=== PATIENT | female | born 1945 | race Caucasian/White ===

== ENCOUNTER 2016-09-13 09:55 | Outpatient (RCR) | payer MEDICARE, BC ==
[2016-07-03 08:43] VITALS: BP 167/79
[~2016-09-13 09:55] MED LIST: ALLERGY10 MG PO; ASPIRIN ADULT L81 M3 PO; ASTELIN NASAL S34 ML NS; CALCIUM 600600 M2 PO; FAMOTIDINE10 MG PO; LISINOPRIL2.5 MG PO; METFORMIN500 MG PO; MVI PO
== END 2016-12-12 | disposition home or self-care (01) ==
LOC: PT
DX: Z47.89 Encounter for other orthopedic aftercare (principal)

== ENCOUNTER → 2017-09-29 | Outpatient (CLI) | payer MEDICARE, BC ==
[2016-07-03 08:43] VITALS: BP 167/79
[2017-09-29 08:49] LABS: BASO # 0.1 (0.02-0.10); EOS # 0.3 (0.04-0.40); EOS % 5.6 % (1.0-5.0); HEMATOCRIT 37.7 % (37.0-47.0); HEMOGLOBIN 12.3 g/dL (12.5-16.0); LYMPH# 1.5 (1.50-4.00); MEAN CELL VOLUME 95 fl (78-100); MEAN CORPUSCULAR HEMOGLOBIN 31 pg (27-31); MEAN CORPUSCULAR HGB CONC 33 g/dL (33-37); MEAN PLATELET VOLUME 9.8 fl (7.4-10.4); MONO # 0.5 (0.20-0.80); NEU # 3.1 (1.40-6.50); PLATELET COUNT 309 K/mm3 (130-400); RED BLOOD COUNT 3.98 M/mm3 (4.10-5.30); RED CELL DISTRIBUTION WIDTH 12.9 % (11.5-14.5); WHITE BLOOD COUNT 5.4 K/mm3 (4.8-10.8)
[2017-09-29 09:02] LABS: ALBUMIN 4.2 g/dL (3.5-5.0); BUN/CREATININE RATIO 19.9 (6.0-26.0); CALCIUM 9.7 mg/dL (8.4-10.2); POTASSIUM 4.8 mmol/L (3.6-5.0); TOTAL BILIRUBIN 0.2 mg/dL (0.2-1.3); TOTAL PROTEIN 7.8 g/dL (6.3-8.2)
== END ==
LOC: LAB 08:33
PROVIDERS: Family Medicine
DX: E11.9 Type 2 diabetes mellitus without complications (principal); D64.9 Anemia, unspecified; Z88.8 Allergy status to other drugs, medicaments and biological substances

== ENCOUNTER → 2017-11-06 | Outpatient (CLI) | payer MEDICARE, BC ==
[2016-07-03 08:43] VITALS: BP 167/79
== END ==
LOC: RAD 11-05 11:30 → MAMMO 11:43
DX: M85.80 Other specified disorders of bone density and structure, unspecified site (principal); Z88.8 Allergy status to other drugs, medicaments and biological substances

== ENCOUNTER → 2018-02-20 | Outpatient (CLI) | payer MEDICARE, BC ==
[2016-07-03 08:43] VITALS: BP 167/79
== END ==
LOC: MAMMO 12:38
DX: N63.11 Unspecified lump in the right breast, upper outer quadrant (principal)

== ENCOUNTER → 2018-02-24 | Outpatient (CLI) | payer MEDICARE, BC ==
[2016-07-03 08:43] VITALS: BP 167/79
== END ==
LOC: RAD 07:09
DX: C50.411 Malignant neoplasm of upper-outer quadrant of right female breast (principal)

== ENCOUNTER → 2018-10-15 | Outpatient (CLI) | payer MEDICARE, BC ==
[2016-07-03 08:43] VITALS: BP 167/79
[2018-10-15 08:20] LABS: ALBUMIN 3.9 g/dL (3.5-5.0); POTASSIUM 4.6 mmol/L (3.6-5.0); TOTAL BILIRUBIN 0.3 mg/dL (0.2-1.3); TOTAL PROTEIN 7.3 g/dL (6.3-8.2)
== END ==
LOC: LAB 07:34
PROVIDERS: Family Medicine
DX: E11.9 Type 2 diabetes mellitus without complications (principal); D64.9 Anemia, unspecified

== ENCOUNTER → 2018-10-25 | Outpatient (CLI) | payer MEDICARE, BC ==
[2016-07-03 08:43] VITALS: BP 167/79
== END ==
LOC: LAB 12:58
DX: Z12.12 Encounter for screening for malignant neoplasm of rectum (principal); Z12.4 Encounter for screening for malignant neoplasm of cervix

== ENCOUNTER → 2019-01-16 | Outpatient (CLI) | payer MEDICARE, BC ==
[2016-07-03 08:43] VITALS: BP 167/79
== END ==
LOC: LAB 08:34
DX: N30.01 Acute cystitis with hematuria (principal)

== ENCOUNTER → 2019-02-26 | Outpatient (CLI) | payer MEDICARE, BC ==
[2016-07-03 08:43] VITALS: BP 167/79
== END ==
LOC: MAMMO 12:15
DX: Z12.31 Encounter for screening mammogram for malignant neoplasm of breast (principal); Z98.890 Other specified postprocedural states

== ENCOUNTER 2019-03-05 20:06 | Emergency (ER) | payer MEDICARE, BC ==
[~2019-03-05 20:06] MED LIST changes: -FAMOTIDINE10 MG PO; +PEPCID 20MG TAB20 MG PO
[2019-03-05] MEDS ORDERED: ALLERGY RELIEF4 M1 PO (20:24)
[2019-03-05] MEDS ORDERED: SYSTANE 0.3-0.415 ML OP (20:25)
[2019-03-05] MEDS ORDERED: GOOD NEIGHBOR100 M2 PO (20:26)
[2019-03-05] MEDS ORDERED: TUMS300 MG PO (20:27)
[2019-03-05] MEDS ORDERED: MELOXICAM7.5 MG PO (20:28)
[2019-03-05 22:29] VITALS: BP 186/78
== END 2019-03-05 22:32 | disposition home or self-care (01) ==
LOC: ED 20:06
DX: T18.120A Food in esophagus causing compression of trachea, initial encounter (principal); R13.10 Dysphagia, unspecified; E11.9 Type 2 diabetes mellitus without complications; K21.9 Gastro-esophageal reflux disease without esophagitis; Z85.3 Personal history of malignant neoplasm of breast; Z98.890 Other specified postprocedural states; Z88.8 Allergy status to other drugs, medicaments and biological substances; Z79.84 Long term (current) use of oral hypoglycemic drugs; Z79.82 Long term (current) use of aspirin
CPT/HCPCS: J1610

== ENCOUNTER → 2019-05-12 | Outpatient (CLI) | payer MEDICARE, BC ==
[~2019-05-12] MED LIST changes: +ALLERGY RELIEF4 M1 PO; +GOOD NEIGHBOR100 M2 PO; +MELOXICAM7.5 MG PO; +SYSTANE 0.3-0.415 ML OP; +TUMS300 MG PO
== END ==
LOC: LAB 16:26
DX: E11.9 Type 2 diabetes mellitus without complications (principal)

== ENCOUNTER → 2020-03-01 | Outpatient (CLI) | payer MEDICARE, BC | LOC: MAMMO 09:13 | DX: Z12.31 Encounter for screening mammogram for malignant neoplasm of breast (principal); Z85.3 Personal history of malignant neoplasm of breast; Z90.11 Acquired absence of right breast and nipple ==

== ENCOUNTER → 2021-03-07 | Outpatient (CLI) | payer MEDICARE, BC | LOC: MAMMO 09:57 | DX: Z12.31 Encounter for screening mammogram for malignant neoplasm of breast (principal) ==

== ENCOUNTER → 2021-05-23 | Outpatient (CLI) | payer MEDICARE, BC ==
[2021-05-23 14:53] LABS: BASO # 0.03 K/mm3 (0.02-0.10); EOS # 0.25 K/mm3 (0.04-0.40); HEMATOCRIT 36.3 % (37.0-47.0); HEMOGLOBIN 11.6 g/dL (12.5-16.0); LYMPH# 1.35 K/mm3 (1.50-4.00); MEAN CELL VOLUME 97 fl (78-100); MEAN CORPUSCULAR HEMOGLOBIN 31 pg (27-31); MEAN CORPUSCULAR HGB CONC 32 g/dL (33-37); MEAN PLATELET VOLUME 9.6 fl (7.4-10.4); MONO # 0.66 K/mm3 (0.20-0.80); NEU # 6.12 K/mm3 (1.40-6.50); PLATELET COUNT 242 K/mm3 (130-400); RED BLOOD COUNT 3.74 M/mm3 (4.10-5.30); RED CELL DISTRIBUTION WIDTH 12.9 % (11.5-14.5); WHITE BLOOD COUNT 8.4 K/mm3 (4.8-10.8)
[2021-05-23 15:14] LABS: ALBUMIN 3.8 g/dL (3.4-4.8); POTASSIUM 4.8 mmol/L (3.5-5.1)
[2021-05-23 15:15] LABS: CALCIUM 9.7 mg/dL (8.3-10.5)
[2021-05-23 15:18] LABS: TOTAL BILIRUBIN 0.2 mg/dL (0.2-1.2)
== END ==
LOC: LAB 14:23
PROVIDERS: Family Medicine
DX: Z00.00 Encounter for general adult medical examination without abnormal findings (principal); E11.9 Type 2 diabetes mellitus without complications; E78.5 Hyperlipidemia, unspecified; M85.80 Other specified disorders of bone density and structure, unspecified site

== ENCOUNTER → 2021-09-05 | Outpatient (CLI) | payer MEDICARE, BC | LOC: RAD 07:56 | DX: I12.9 Hypertensive chronic kidney disease with stage 1 through stage 4 chronic kidney disease, or unspecified chronic kidney disease (principal); E11.21 Type 2 diabetes mellitus with diabetic nephropathy; E11.22 Type 2 diabetes mellitus with diabetic chronic kidney disease; N18.32 Chronic kidney disease, stage 3b ==

== ENCOUNTER → 2021-10-25 | Outpatient (CLI) | payer MEDICARE, BC ==
[2021-10-25 12:33] LABS: POTASSIUM 5.5 mmol/L (3.5-5.1)
[2021-10-25 12:35] LABS: CALCIUM 9.8 mg/dL (8.3-10.5)
[2021-10-25 12:36] LABS: TOTAL PROTEIN 7.2 g/dL (6.2-8.1)
[2021-10-25 12:38] LABS: TOTAL BILIRUBIN 0.2 mg/dL (0.2-1.2)
== END ==
LOC: LAB 11:51
PROVIDERS: Internal Medicine Nephrology
DX: I12.9 Hypertensive chronic kidney disease with stage 1 through stage 4 chronic kidney disease, or unspecified chronic kidney disease (principal); N18.32 Chronic kidney disease, stage 3b; D63.1 Anemia in chronic kidney disease

== ENCOUNTER → 2021-10-26 | Outpatient (CLI) | payer MEDICARE, BC ==
[2021-10-26 11:01] LABS: URINE APPEARANCE CLEAR; URINE COLOR YELLOW
[2021-10-26 11:02] LABS: URINE BILIRUBIN NEGATIVE (NEGATIVE); URINE BLOOD NEGATIVE (NEGATIVE); URINE GLUCOSE NEGATIVE (NEGATIVE); URINE KETONE NEGATIVE (NEGATIVE); URINE LEUKOCYTE ESTERASE NEGATIVE (NEGATIVE); URINE MUCUS PRESENT (NOT PRESENT); URINE NITRATE NEGATIVE (NEGATIVE); URINE PROTEIN(semi-quant) TRACE (NEGATIVE); URINE UROBILINOGEN NORMAL (NORMAL)
== END ==
LOC: LAB 10:09
PROVIDERS: Family Medicine
DX: I12.9 Hypertensive chronic kidney disease with stage 1 through stage 4 chronic kidney disease, or unspecified chronic kidney disease (principal); N18.32 Chronic kidney disease, stage 3b

== ENCOUNTER → 2022-03-12 | Outpatient (CLI) | payer MEDICARE, BC | LOC: MAMMO 03-08 10:00 | DX: Z12.31 Encounter for screening mammogram for malignant neoplasm of breast (principal); Z85.3 Personal history of malignant neoplasm of breast; Z90.11 Acquired absence of right breast and nipple; Z92.3 Personal history of irradiation ==

== ENCOUNTER → 2022-08-29 | Outpatient (CLI) | payer MEDICARE, BC ==
[2022-08-29 16:07] LABS: CALCIUM 10.2 mg/dL (8.3-10.5)
[2022-08-29 21:49] LABS: CREATININE OTHER SOURCE 67 mg/dL (63-166)
== END ==
LOC: LAB 11:40
PROVIDERS: Internal Medicine Nephrology
DX: I12.9 Hypertensive chronic kidney disease with stage 1 through stage 4 chronic kidney disease, or unspecified chronic kidney disease (principal); E11.21 Type 2 diabetes mellitus with diabetic nephropathy; E11.22 Type 2 diabetes mellitus with diabetic chronic kidney disease; N18.32 Chronic kidney disease, stage 3b

== ENCOUNTER → 2024-01-21 | Outpatient (CLI) | payer MEDICARE, BC ==
[2024-01-21 08:08] LABS: BASO # 0.05 K/mm3 (0.02-0.10); EOS # 0.38 K/mm3 (0.04-0.40); EOS % 7.1 % (1.0-5.0); HEMATOCRIT 37.5 % (37.0-47.0); HEMOGLOBIN 12.2 g/dL (12.5-16.0); LYMPH# 0.97 K/mm3 (1.50-4.00); MEAN CELL VOLUME 95 fl (78-100); MEAN CORPUSCULAR HEMOGLOBIN 31 pg (27-31); MEAN CORPUSCULAR HGB CONC 33 g/dL (33-37); MEAN PLATELET VOLUME 9.9 fl (7.4-10.4); MONO # 0.39 K/mm3 (0.20-0.80); NEU # 3.53 K/mm3 (1.40-6.50); PLATELET COUNT 273 K/mm3 (130-400); RED BLOOD COUNT 3.94 M/mm3 (4.10-5.30); RED CELL DISTRIBUTION WIDTH 12.8 % (11.5-14.5); WHITE BLOOD COUNT 5.3 K/mm3 (4.8-10.8)
[2024-01-21 08:18] LABS: ALBUMIN 4.1 g/dL (3.4-4.8)
[2024-01-21 08:19] LABS: CALCIUM 10.4 mg/dL (8.3-10.5)
[2024-01-21 08:20] LABS: TOTAL PROTEIN 7.1 g/dL (6.2-8.1)
[2024-01-21 08:22] LABS: TOTAL BILIRUBIN 0.4 mg/dL (0.2-1.2)
== END ==
LOC: LAB 07:50
PROVIDERS: Family Medicine
DX: I10 Essential (primary) hypertension (principal); E11.9 Type 2 diabetes mellitus without complications; E55.9 Vitamin D deficiency, unspecified; E78.5 Hyperlipidemia, unspecified

== ENCOUNTER → 2024-03-04 | Outpatient (CLI) | payer MEDICARE, BC ==
[2024-03-04 14:36] LABS: CALCIUM 9.8 mg/dL (8.3-10.5)
== END ==
LOC: LAB 13:58
PROVIDERS: Internal Medicine Nephrology
DX: I12.9 Hypertensive chronic kidney disease with stage 1 through stage 4 chronic kidney disease, or unspecified chronic kidney disease (principal); N18.32 Chronic kidney disease, stage 3b; N25.81 Secondary hyperparathyroidism of renal origin

== ENCOUNTER → 2024-03-17 | Outpatient (CLI) | payer MEDICARE, BC | LOC: MAMMO 08:09 | DX: Z12.31 Encounter for screening mammogram for malignant neoplasm of breast (principal) ==

== ENCOUNTER → 2024-07-03 | Outpatient (CLI) | payer MEDICARE, BC | LOC: LAB 11:22 | DX: E11.9 Type 2 diabetes mellitus without complications (principal) ==

== ENCOUNTER → 2024-09-04 | Outpatient (CLI) | payer MEDICARE, BC ==
[2024-09-04 11:39] LABS: CALCIUM 9.3 mg/dL (8.3-10.5)
== END ==
LOC: LAB 11:18
PROVIDERS: Internal Medicine Nephrology
DX: E11.21 Type 2 diabetes mellitus with diabetic nephropathy (principal); I12.9 Hypertensive chronic kidney disease with stage 1 through stage 4 chronic kidney disease, or unspecified chronic kidney disease; E11.22 Type 2 diabetes mellitus with diabetic chronic kidney disease; N18.32 Chronic kidney disease, stage 3b; N25.81 Secondary hyperparathyroidism of renal origin